=== PATIENT | female | born 1965 | race African-American/Black ===

== ENCOUNTER 2024-10-08 08:47 | Emergency (ER) | payer SELFPAY ==
[~2024-10-08] VITALS: Ht 165.1 cm; Wt 55.0 kg
[2024-10-08 08:52] VITALS: O2SAT 100
[2024-10-08] MEDS: ACETAMINOPHEN 325MG TABLET PO ONE (09:30)
[2024-10-08] MEDS: IBUPROFEN 400MG TABLET PO ONE (10:36)
[2024-10-08] MEDS ORDERED: IBUP-2028 PO (10:42)
[2024-10-08 10:54] VITALS: BP 137/55; PULSE 75; RESP 18; TEMP 37.1; O2SAT 98
== END 2024-10-08 10:57 | disposition home or self-care (01) ==
LOC: ER 08:55
DX: S20.212A Contusion of left front wall of thorax, initial encounter (principal); F41.9 Anxiety disorder, unspecified; Z90.49 Acquired absence of other specified parts of digestive tract; Z79.1 Long term (current) use of non-steroidal anti-inflammatories (NSAID); W19.XXXA Unspecified fall, initial encounter; Y93.89 Activity, other specified; Y92.89 Other specified places as the place of occurrence of the external cause; Y99.8 Other external cause status
CPT/HCPCS: 71101; 99283